=== PATIENT | male | born 1990 | race African-American/Black ===

== ENCOUNTER 2017-01-26 04:40 | Emergency (ER) | payer SELFPAY ==
[~2017-01-26] VITALS: Ht 177.8 cm; Wt 77.3 kg
[~2017-01-26 04:40] MED LIST: NOCURR
[2017-01-26 04:42] VITALS: BP 144/93
== END 2017-01-26 05:16 | disposition home or self-care (01) ==
LOC: EMS 04:41
DX: L02.414 Cutaneous abscess of left upper limb (principal); F17.210 Nicotine dependence, cigarettes, uncomplicated; F12.10 Cannabis abuse, uncomplicated
CPT/HCPCS: 99283